=== PATIENT | male | born 1995 | race Caucasian/White ===

== ENCOUNTER 2020-10-18 11:19 | Inpatient (IN) | payer OTHER ==
[~2020-10-18] VITALS: Ht 188 cm; Wt 79.5 kg
[~2020-10-18 11:19] MED LIST: ACETAMINOPHEN W1 TA6 PO; NO HOME MEDICATIONS
[2020-10-18 12:08] LABS: MEAN CELL VOLUME 67 fl (80.0-100.0); MEAN CORPUSCULAR HGB CONC 24 g/dl (33.0-37.0); MEAN PLATELET VOLUME 9.2 fl (7.4-10.4); PLATELET COUNT 816 K/mm3 (130-400); RED BLOOD COUNT 3.57 M/mm3 (4.20-5.60); REDCELL DISTRIBUTION WIDTH-CV 20.5 % (11.5-14.5)
[2020-10-18 12:15] LABS: ALBUMIN 3.5 gm/dL (3.5-5.0); BILIRUBIN,TOTAL 0.3 mg/dL (0.0-1.0); CALCIUM 8.6 mg/dL (8.4-10.2); CREATININE, serum 0.77 (0.66-1.25); POTASSIUM 4.2 mmol/L (3.4-5.0); TOTAL PROTEIN 6.8 gm/dL (6.4-8.2)
[2020-10-18 12:23] LABS: HEMOGLOBIN 5.8 g/dl (13.5-18.0); MEAN CORPUSCULAR HEMOGLOBIN 16 pg (27.0-31.0)
[2020-10-18 12:36] LABS: EOSINOPHIL 5 % (0-4); LYMPHOCYTE 8 % (20.0-51.0); NEUTROPHILS 75 % (42.0-75.2)
[2020-10-18 12:38] LABS: PLATELET ESTIMATE INCREASED (NORMAL)
[2020-10-18 12:39] LABS: ANISOCYTOSIS 2+
[2020-10-18 12:40] LABS: MICROCYTOSIS 2+; OVALOCYTES 1+
[2020-10-18 12:48] LABS: TRICYCLIC ANTIDEPRESS URINE NEGATIVE
[2020-10-18 12:56] LABS: INR 1.4 (0.8-3.0); PROTHROMBIN TIME 15.6 SECONDS (9.7-12.8)
[2020-10-18 13:47] LABS: MEAN CELL VOLUME 67 fl (80.0-100.0); MEAN CORPUSCULAR HGB CONC 24 g/dl (33.0-37.0); MEAN PLATELET VOLUME 9.5 fl (7.4-10.4); PLATELET COUNT 895 K/mm3 (130-400); RED BLOOD COUNT 3.68 M/mm3 (4.20-5.60); REDCELL DISTRIBUTION WIDTH-CV 21.1 % (11.5-14.5)
[2020-10-18 13:56] LABS: HEMATOCRIT 24.6 % (42.0-52.0); MEAN CORPUSCULAR HEMOGLOBIN 16 pg (27.0-31.0)
[2020-10-18] MEDS ORDERED: HUMIRA40 MG/0.8 SQ (14:03)
[2020-10-18] MEDS ORDERED: LIALDA 1.2 GM1.2 GM PO (14:04)
[2020-10-18 14:24] LABS: BAND 3 % (0-10); BASOPHIL 1 % (0-2); EOSINOPHIL 4 % (0-4); LYMPHOCYTE 8 % (20.0-51.0); METAMYELOCYTE 1 % (0-0); NEUTROPHILS 71 % (42.0-75.2)
[2020-10-18 14:25] LABS: PLATELET ESTIMATE INCREASED (NORMAL)
[2020-10-18 14:26] LABS: ANISOCYTOSIS 2+
[2020-10-18 14:27] LABS: MICROCYTOSIS 2+
[2020-10-18 16:32] LABS: IRON,SERUM 12 ug/dL (35-150)
[2020-10-18 16:41] LABS: TOTAL IRON BINDING CAPACITY 345 ug/dL (261-462)
[2020-10-18 16:45] LABS: TROPONIN-I < 0.012 ng/mL (0.000-0.035)
--- NOTE | 2020-10-18 16:59 | NUR ---
This RN is to assume care for patient when he get up to room 308. Report received from RIKY Johnson. Pt.'s d- dimer is critically elevated, Dr. Izaguirre notified via telephone. Plan for Dr. Izaguirre to place new orders for a CT of the chest.
[2020-10-18 17:04] LABS: CREATINE KINASE 36 U/L (55-170)
[2020-10-18 17:16] VITALS: BP 120/68; PULSE 86; TEMP 99.2
--- NOTE | 2020-10-18 18:30 | NUR ---
Pt. admitted to room 308. Pt oriented to the unit, including call light and telephone. Report received from RIKY Johnson. The pt. was steady on his feet from the stretcher to the bed. Pt. alert and able to answer questions. R sided facial droop noted, along with significant weakness to pt.'s R arm. Pt able to raise R arm up to his shoulder, but he could not hold it in the air for more than a few seconds. Scheduled medications given per order, including IVF and heparin drip. Pt. agreeable with plan of care.
[2020-10-18 19:10] LABS: PARTIAL THROMBOPLASTIN TIME 30.4 SECONDS (26.0-37.0)
[2020-10-18 20:53] VITALS: BP 112/63; PULSE 91; TEMP 99.9
[2020-10-18 22:16] VITALS: BP 114/69; PULSE 92; TEMP 100.4
[2020-10-18 22:21] VITALS: BP 114/69; PULSE 92; TEMP 100.4
--- NOTE | 2020-10-18 22:23 | NUR ---
PT INFUSING BLOOD ADMINISTRATION VIA RIGHT FA PERIPHERAL LINE AT 200ML/HR. PT DENIES PAIN,N,V,D. PT INSTRUCTED OF S/S TO REPORT TO NURSE. NURSE WILL CONTINUE TO F/U.
[2020-10-18 22:25] VITALS: BP 120/77; PULSE 100; TEMP 102.6
--- NOTE | 2020-10-18 23:20 | NUR ---
PT'S TEMPERATURE AT 102.6, MEDICATION ADMINISTERED ORDERED AND TOOK COVERS OFF PT. NURSE WILL CONTINUE TO MONITOR.
[2020-10-19] VITALS (9 sets, daily range): BP systolic 89–119; BP diastolic 54–66; PULSE 68–95; TEMP 98.6–100.2
--- NOTE | 2020-10-19 00:32 | NUR ---
AT 2355 PT COMPLETED BLOOD ADMINISTRATION INFUSION. PT DENIES PAIN,N,V,D, CONSTIPATION. PT FREE OF HIVES, SOB, DIZZINESS. NURSE WILL CONTINUE TO MONITOR PT'S FEVER. CALL LIGHT WITHIN REACH.
[2020-10-19 02:29] LABS: HEMATOCRIT 22.4 % (42.0-52.0)
--- NOTE | 2020-10-19 03:57 | NUR ---
PT TRANSPORTED TO CT SCAN AT 0325 VIA WHEELCHAIR VIA MEDICAL STAFF . PT RETURNED TO FLOOR AT 0340 VIA WHEELCHAIR. PT DENIES PAIN,N,V,D. CALL LIGHT WITHIN REACH.
--- NOTE | 2020-10-19 05:32 | NUR ---
PT INFUSING 2ND UNIT OF BLOOD AT 200ML/HR AT 0449, PT DENIES PAIN,N,V,D. PT AWARE OF S/S TO REPORT TO NURSE. TEMPERATURE REMAINS AT 99.0. CALL LIGHT WITHIN REACH.
--- NOTE | 2020-10-19 06:32 | NUR ---
PT LOOD TRANSFUSION COMPLETE AT 0632, PT DENIES N,V,D, TEMPERATURE REMAINS AT 99.3, HEP GTT INFUSING AT 16.50ML/HR, N/S INFUSING AT 100 ML/HR. PT CURRENTLY RESTING IN BED, A/OX4, 02 ROOM AIR. BED LOW, CALL LIGHT WITHIN REACH.
[2020-10-19 08:28] LABS: MEAN CELL VOLUME 69 fl (80.0-100.0); MEAN CORPUSCULAR HGB CONC 27 g/dl (33.0-37.0); MEAN PLATELET VOLUME 8.8 fl (7.4-10.4); RED BLOOD COUNT 3.81 M/mm3 (4.20-5.60); REDCELL DISTRIBUTION WIDTH-CV 24.3 % (11.5-14.5)
[2020-10-19 08:31] LABS: HEMATOCRIT 26.4 % (42.0-52.0); HEMOGLOBIN 7.1 g/dl (13.5-18.0); MEAN CORPUSCULAR HEMOGLOBIN 19 pg (27.0-31.0); PLATELET COUNT 775 K/mm3 (130-400)
[2020-10-19 08:44] LABS: CALCIUM 8.2 mg/dL (8.4-10.2); CHOLESTEROL RISK RATIO 3.9; CREATININE, serum 0.81 (0.66-1.25); POTASSIUM 4.2 mmol/L (3.4-5.0)
[2020-10-19 09:24] LABS: BAND 2 % (0-10); BASOPHIL 1 % (0-2)
[2020-10-19 09:25] LABS: LYMPHOCYTE 15 % (20.0-51.0); NEUTROPHILS 66 % (42.0-75.2); PLATELET ESTIMATE INCREASED (NORMAL)
[2020-10-19 09:26] LABS: OVALOCYTES 1+
--- NOTE | 2020-10-19 09:28 | NUR ---
PT PLEASANT, AOX4, SIGNIFICANT R SIDE FACIAL DROOP AND RUE WEAKNESS, RLE NOT AFFECTED, WITNESSED PT WALK TO BATHROOM, STEADY GAIT, BEDSIDE SWALLOW WENT WELL NOT COUGHING. AHA DIET PLACED PER ADDITIONAL NURSING ORDER. ASSESSMENT PERFORMED, NEURO CHECK PERFORMED, MEDICATIONS GIVEN, HEPARIN RATE CHANGED AND VERIFIED BY JUSTO LAN.
[2020-10-19 09:29] LABS: ANISOCYTOSIS 2+
--- NOTE | 2020-10-19 15:14 | NUR ---
SW attempted to call patient to complete intake, unable to reach. SW attempted to call mother Isamar [phone] to complete intake, unable to reach. SW will continue to attempt intake.
--- NOTE | 2020-10-19 16:32 | NUR ---
BP REEVALUATED AT 113/63
--- NOTE | 2020-10-19 16:50 | NUR ---
PT FATHER AND MOTHER UPDATED DURING THE DAY. PT PLEASANT, AOX4, R SIDED FACIAL DROOPING AND R SIDED UE WEAKNESS UNCHANGED FROM AM. FLUIDS INFUSING, ALL MEDICATIONS GIVEN, STOOL OCCULT COLLECTED, PT TOLERATING PO MEALS W/O ISSUE/COMPLAINT. HEPARIN DRIP DC'D. NO OTHER NEEDS
--- NOTE | 2020-10-19 22:51 | NUR ---
PT'S GRANDMOTHER, BUSTER CALLED THIS NURSE TO INFORM HER OF A FAMILY HISTORY OF LATENT FACTOR [facility] LEIDEN. BUSTER RELAYED THAT HER SISTER AND COUSIN BOTH HAVE FAMILY HISTORY OF AFORMENTIONED. THIS NURSE WILL ENSURE TO RELAY TO ONCOMING SHIFT.
[2020-10-20] VITALS (16 sets, daily range): BP systolic 81–117; BP diastolic 46–69; PULSE 59–88; TEMP 97.6–99.7
[2020-10-20 07:20] LABS: MEAN CELL VOLUME 70 fl (80.0-100.0); MEAN CORPUSCULAR HGB CONC 27 g/dl (33.0-37.0); MEAN PLATELET VOLUME 9.2 fl (7.4-10.4); PLATELET COUNT 784 K/mm3 (130-400); RED BLOOD COUNT 3.69 M/mm3 (4.20-5.60); REDCELL DISTRIBUTION WIDTH-CV 24.6 % (11.5-14.5)
[2020-10-20 07:25] LABS: HEMATOCRIT 25.8 % (42.0-52.0); HEMOGLOBIN 6.9 g/dl (13.5-18.0); MEAN CORPUSCULAR HEMOGLOBIN 19 pg (27.0-31.0)
--- NOTE | 2020-10-20 07:29 | NUR ---
Hemoglobin today 6.9. Dr. Izaguirre notified via telephone. New orders obtained for one unit of PRBCs.
[2020-10-20 07:48] LABS: ANISOCYTOSIS 2+; BAND 7 % (0-10); EOSINOPHIL 6 % (0-4); LYMPHOCYTE 11 % (20.0-51.0); NEUTROPHILS 60 % (42.0-75.2); NUCLEATED RED BLOOD CELL 1 (0-6); PLATELET ESTIMATE INCREASED (NORMAL)
[2020-10-20 07:49] LABS: OVALOCYTES 1+
--- NOTE | 2020-10-20 10:53 | NUR ---
Pt. progressing w/ plan of care. Pt. showered and is feeling good. Pt. to get blood today per order. Call from blood bank received, they are in the proccess of getting the blood ready. Pt.'s father called this AM, looking for an update/ plan. The physician has not rounded yet today so this RN per the pt.'s permission, was only able to update pt.'s father that the plan for today was to get blood. Needs addressed, call light and belongings in reach.
--- NOTE | 2020-10-20 13:53 | NUR ---
Mother called about clients care. Patient gave verbal permission to talk with parent. Patient is residing [place] and travels back and [place] and will be states [place]. Mother report patient has no primary care, Mother inidcated that the patient uses drugs and his father is wanting to get him in to rehab however patient is resistant to care. Mother wanted the social work to talk to him about adulting. Educated that he has want to do the things. DAD and mom are feuding about his care and attempting have a Consult with Dr. Thomas. Educated on 10 day Quarantine. Mother Vianca .. Patient is not esablished in [place], [place] or [facility]. Educated WIll call her.
[2020-10-20] MEDS ORDERED: ELIQUIS 5MG PO (14:17)
[2020-10-20] MEDS ORDERED: Ferrous Sulfate PO (14:17)
--- NOTE | 2020-10-20 16:12 | NUR ---
Patient is resting in bed. BP 89/47, patient reports no symptoms. Call light in reach, advised patient to call if anything changes.
[2020-10-20 18:44] LABS: HEMATOCRIT 30.9 % (42.0-52.0); HEMOGLOBIN 8.4 g/dl (13.5-18.0)
--- NOTE | 2020-10-20 19:37 | NUR ---
Discharge paperwork reviewed with the patient. Patient verbalized an understanding to follow the doctors orders. Nurse stressed the importance of getting a PCP and to make f/u appointments with specialist. Patient verbalized an understanding. Nurse also informed the patient to quarantine until October 29 for Covid. Patient calling his grandmother to come medicinal plant picker. No further needs expressed from the patient. Call light within reach
--- NOTE | 2020-10-20 22:07 | NUR ---
Shift assessment completed. Patient alert and oriented. All scheduled evening meds given per MAY. Removed IVs and covered with band-aids. Discharge paperworks reviewed with patient and given to patient. Assisted patient in the wheelchair and 2 nurses bring patient to the emergency room parking lot at 2100. Patient's family waiting by the door. Care transferred to patient's family.
== END 2020-10-20 21:00 | disposition home or self-care (01) | DRG 64 ==
LOC: COL.ER 11:19 → MEDICAL 14:53
PROVIDERS: Nurse Practitioner; Physician Assistant; Student in an Organized Health Care Education/Training Program; ADMIT Internal Medicine
DX: I63.10 Cerebral infarction due to embolism of unspecified precerebral artery (principal); U07.1 COVID-19; I26.99 Other pulmonary embolism without acute cor pulmonale; K51.90 Ulcerative colitis, unspecified, without complications; D68.59 Other primary thrombophilia; D50.9 Iron deficiency anemia, unspecified
CPT/HCPCS: 99223-AI; 99232-AI; 99239; A9585; C9113; G0378; J1644; J1756; J7030; P9016; Q9967